=== PATIENT | female | born 1970 | race Caucasian/White ===

== ENCOUNTER → 2020-04-09 | Outpatient (CLI) | payer OTHER ==
[~2020-04-09] MED LIST: KEFLEX CAP 500500 MG PO; PERCOCET 5/325 T1 EA PO; PYRIDIUM100 MG PO
== END ==
LOC: KOH-I 15:14
DX: S92.351A Displaced fracture of fifth metatarsal bone, right foot, initial encounter for closed fracture (principal); X58.XXXA Exposure to other specified factors, initial encounter
CPT/HCPCS: 73630

== ENCOUNTER → 2020-04-23 | Outpatient (CLI) | payer OTHER | LOC: KOH-I 15:43 | DX: S92.351A Displaced fracture of fifth metatarsal bone, right foot, initial encounter for closed fracture (principal) | CPT/HCPCS: 73630 ==

== ENCOUNTER → 2020-05-15 | Outpatient (CLI) | payer OTHER | LOC: KOH-I 15:14 | DX: S92.351A Displaced fracture of fifth metatarsal bone, right foot, initial encounter for closed fracture (principal); X58.XXXA Exposure to other specified factors, initial encounter | CPT/HCPCS: 73630 ==

== ENCOUNTER → 2020-05-30 | Outpatient (CLI) | payer OTHER | LOC: KOH-I 05-28 08:45 | DX: S93.491A Sprain of other ligament of right ankle, initial encounter (principal); R60.0 Localized edema; X58.XXXA Exposure to other specified factors, initial encounter | CPT/HCPCS: 73721 ==

== ENCOUNTER → 2020-06-05 | Outpatient (CLI) | payer OTHER | LOC: KOH-I 13:54 | DX: S92.351A Displaced fracture of fifth metatarsal bone, right foot, initial encounter for closed fracture (principal); X58.XXXA Exposure to other specified factors, initial encounter | CPT/HCPCS: 73630 ==

== ENCOUNTER → 2020-07-03 | Outpatient (CLI) | payer OTHER | LOC: KOH-I 14:03 | DX: S92.351A Displaced fracture of fifth metatarsal bone, right foot, initial encounter for closed fracture (principal); S92.351D Displaced fracture of fifth metatarsal bone, right foot, subsequent encounter for fracture with routine healing | CPT/HCPCS: 73630 ==

== ENCOUNTER → 2020-07-24 | Outpatient (CLI) | payer OTHER | LOC: KOH-I 14:38 | DX: S92.351A Displaced fracture of fifth metatarsal bone, right foot, initial encounter for closed fracture (principal) | CPT/HCPCS: 73630 ==

== ENCOUNTER 2021-01-05 22:17 | Emergency (ER) | payer OTHER ==
[2021-01-05 22:58] LABS: HEMOGLOBIN 13.2 gm/dl (12.3-15.3); RED BLOOD COUNT 3.94 M/UL (4.00-5.10); WHITE BLOOD COUNT 9.5 K/UL (4.5-11.0)
[2021-01-05 23:17] LABS: BUN/CREATININE RATIO 11 (0-10)
== END 2021-01-06 06:19 | disposition home or self-care (01) ==
LOC: ER1 22:17
PROVIDERS: Family Medicine
DX: R07.9 Chest pain, unspecified (principal); E87.6 Hypokalemia; F17.200 Nicotine dependence, unspecified, uncomplicated; Z88.1 Allergy status to other antibiotic agents; Z79.82 Long term (current) use of aspirin
CPT/HCPCS: 71045; 80048; 82550; 82553; 83874; 84484; 85025; 85379; 85610; 93005; 99285; Q9967